=== PATIENT | female | born 1995 | race Caucasian/White ===

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

== ENCOUNTER 2018-03-06 06:11 | Inpatient (IN) | payer MEDICAID ==
[~2018-03-06] VITALS: Ht 160 cm; Wt 88.2 kg
[~2018-03-06 06:11] MED LIST changes: +IBU600 MG PO
[2018-03-09] VITALS (33 sets, daily range): BP systolic 104–145; BP diastolic 55–89; PULSE 60–86; TEMP 98–98.6
--- NOTE | 2018-03-09 07:45 | NUR ---
Patient ambulatory to LDR3 for induction of labor. Plan of care reviewed. EFMs explained and applied. FHR 140bpm and reactive. No ctx per toco or patient reports. VSS. Assessment completed and consents signed. Patient denies leaking of fluid or vaginal bleeding. SVE /-3. IV started in left hand with labs drawn from site. 0745 - LR and Pen G infusing per orders and protocol.
--- NOTE | 2018-03-09 07:45 | NUR ---
Pitocin started at 2mu per orders and protocol.
[2018-03-09 08:07] LABS: BASO % 0.2 % (0.0-2.0); EOS % 0.1 % (0-4.0); GRAN # 6.3 (1.4-6.5); GRAN % 72.2 % (42.2-75.2); HEMATOCRIT 33.2 % (35.0-45.0); HEMOGLOBIN 10.8 g/dl (12.0-15.0); LYMPH # 1.7 (1.2-3.4); LYMPH % 19.1 % (20.0-51.0); MEAN CELL VOLUME 80 fl (80.0-95.0); MEAN CORPUSCULAR HEMOGLOBIN 26 pg (26.0-32.0); MEAN CORPUSCULAR HGB CONC 33 g/dl (33.0-37.0); MEAN PLATELET VOLUME 9.9 fl (7.4-10.4); MONO # 0.7 (0.1-0.6); MONO % 7.8 % (1.7-9.3); PLATELET COUNT 193 K/mm3 (130-400); RED BLOOD COUNT 4.16 M/mm3 (4.10-5.30); REDCELL DISTRIBUTION WIDTH-CV 14.6 % (11.5-14.5)
--- NOTE | 2018-03-09 08:55 | NUR ---
Dr. Butler to room. Reviews FHR tracing. SVE with AROM. /-2 with clear fluid noted.
--- NOTE | 2018-03-09 10:53 | NUR ---
1045 Patient uncomfortable with contractions, requesting epidural. IVF bolus started and RELOCATION DIRECTOR notified. 1048 Lester, RELOCATION DIRECTOR to room to place epidural. Patient sits upright on the side of the bed. FHR difficult to monitor in this position and intermittently monitors maternal HR as it coorelates with spO2 tracing. 1053 Test dose administered by Lester - see anesthesia record for details. 1058 Patient wedged to right side.
--- NOTE | 2018-03-09 12:20 | NUR ---
1145 - Recurrent late decelerations noted. 1155 - Patient turned to high left side. 1215 - Patient c/o feeling increased pressure. SVE - anterior lip/100/+1. Dr. Butler notified. 1218 FHR down to 80 bpm over 3 minutes. Pitocin turned off.
--- NOTE | 2018-03-09 13:11 | NUR ---
1254 Dr. Butler at bedside. SVE - complete. Ozuna out and patient prepped for delivery. 1258 Patient begins to push with contractions. 1311 Spontaneous vaginal delivery of viable male by Dr. Butler. Cord clamped and cut and infant to the care of the nursery RN. 1319 Spontaneous delivery of placenta by Dr. Butler. Pitocin infusing at 333ml/hr per orders and protocol. Fundus firm, lochia WNL.
[2018-03-10 01:00] VITALS: BP 128/70; PULSE 80; TEMP 98.2
[2018-03-10 05:00] VITALS: BP 132/68; PULSE 62; TEMP 98.1
[2018-03-10 09:25] VITALS: BP 131/65; PULSE 64; TEMP 98.1
[2018-03-10] MEDS ORDERED: IBU600 MG PO (09:31)
[2018-03-10] MEDS ORDERED: PERCOCET 325 MG1 TA2 PO (09:31)
[2018-03-10 12:30] VITALS: BP 144/67; PULSE 60; TEMP 97.4
[2018-03-10 16:00] VITALS: BP 135/80; PULSE 62; TEMP 97.8
[2018-03-10 21:35] VITALS: BP 129/61; PULSE 65; TEMP 98.5
[2018-03-11 09:00] VITALS: BP 129/75; PULSE 64; TEMP 97.8
--- NOTE | 2018-03-11 09:31 | NUR ---
Initial visit; Mom thanked Flavorer for offering congratulations and God's blessings for the of their son. Flavorer thanked them for choosing [facility].
== END 2018-03-11 10:55 | disposition home or self-care (01) | DRG 807 ==
LOC: LDR 06:11 → OB 03-09 07:05 → LDR 03-09 07:57 → OB 03-09 15:45
PROVIDERS: ADMIT Obstetrics & Gynecology
PROC: 10E0XZZ Delivery of Products of Conception, External Approach (ICD-10-PCS; principal; 2018-03-09)
PROC: 10907ZC Drainage of Amniotic Fluid, Therapeutic from Products of Conception, Via Natural or Artificial Opening (ICD-10-PCS; 2018-03-09)
PROC: 3E033VJ Introduction of Other Hormone into Peripheral Vein, Percutaneous Approach (ICD-10-PCS; 2018-03-09)
PROC: 0HQ9XZZ Repair Perineum Skin, External Approach (ICD-10-PCS; 2018-03-09)
DX: O34.211 Maternal care for low transverse scar from previous cesarean delivery (principal); Z37.0 Single live birth; Z3A.40 40 weeks gestation of pregnancy; O70.0 First degree perineal laceration during delivery; O99.824 Streptococcus B carrier state complicating childbirth; Z28.21 Immunization not carried out because of patient refusal
CPT/HCPCS: J2540; J2590; J2795; J7120

== ENCOUNTER 2021-01-25 19:19 | Outpatient (CLI) | payer MEDICAID ==
[~2021-01-25] VITALS: Ht 167.6 cm; Wt 88.6 kg
--- NOTE | 2021-01-25 19:28 | NUR ---
PT PRESENTS TO UNIT AND SHOWN TO ROOM LDR 4 BY THIS RN. PT INSTRUCTED TO PUT ON GOWN AND PLAN OF CARE DISCUSSED. PT VERBALIZED AN UNDERSTANDING. PT IS , GBS-, X2. PT PRESENTS COMPLAINING OF CONTRACTIONS q2-5 FOR LAST 2 HR. PT DENIES SROM, VAGINAL BLEEDING, OR DECREASED MOVEMENT.
--- NOTE | 2021-01-25 19:34 | NUR ---
EFM AND TOCO APPLIED
[2021-01-25 20:00] VITALS: BP 136/80; PULSE 92; TEMP 98.6
--- NOTE | 2021-01-25 20:00 | NUR ---
X1 ONE CONTRACTION DETECTED BY MONITOR AND REPORTED BY PT. PT TALKING THROUGH CONTRACTION AND CONTRACTION PALPATES MILD
[2021-01-25 21:00] VITALS: BP 129/65; PULSE 90
--- NOTE | 2021-01-25 21:20 | NUR ---
DISCHARGE TEACHING REVIEWED AND PT VERBALIZED AN UNDERSTANDING. PT GIVEN TEACHING
--- NOTE | 2021-01-25 21:30 | NUR ---
PT AMBULATED OFF FLOOR IN STABLE, UNDELIVERED CONDITION AT THIS TIME
== END 2021-01-25 21:30 | disposition home or self-care (01) ==
LOC: LDRO 19:19 → LDR 19:22 → LDRO 21:30
DX: O62.9 Abnormality of forces of labor, unspecified (principal); Z3A.37 37 weeks gestation of pregnancy
CPT/HCPCS: OP

== ENCOUNTER 2021-02-10 07:36 | Inpatient (IN) | payer MEDICAID ==
[~2021-02-10] VITALS: Ht 167.6 cm; Wt 89.5 kg
[2021-02-10] VITALS (41 sets, daily range): BP systolic 74–150; BP diastolic 30–95; PULSE 63–118; TEMP 97–98.8
--- NOTE | 2021-02-10 08:00 | NUR ---
0745- Pt arrives on unit with complaints of SROM at 4:40 this morning. Pt unsure of color of fluid. Pt into bathroom, changes into gown. 0750- Pt into bed, EFM and TOCO on and tracing. VSS. Pt states she feels contractions but not regular or strong.
--- NOTE | 2021-02-10 08:30 | NUR ---
0813- Amniotrace positive. SVE 05/10/-3. minimal fluid noted with exam.
--- NOTE | 2021-02-10 09:00 | NUR ---
0835- [facility] and TOCO off, PT up for bathroom. Gush of yellow fluid noted when Pt stands at side of bed, will continue to monitor.
--- NOTE | 2021-02-10 09:40 | NUR ---
0940-Dr. Reynoso to unit, evaluates strip in to see patient. SVE 3-06/10/3. Forebag ruptured by MD. 1003-Pit started per MD order.
[2021-02-10 10:37] LABS: BASO % 0.3 % (0.0-2.0); EOS # 0.1 K/mm3 (0.0-0.7); EOS % 0.4 % (0.0-4.0); GRAN # 9.9 K/mm3 (1.4-6.5); HEMOGLOBIN 11.7 g/dl (12.5-16.0); LYMPH % 15.2 % (20.0-51.0); MEAN CELL VOLUME 82 fl (80.0-100.0); MEAN CORPUSCULAR HEMOGLOBIN 28 pg (27-31); MEAN CORPUSCULAR HGB CONC 34 g/dl (33.0-37.0); MEAN PLATELET VOLUME 9.7 fl (7.4-10.4); MONO # 1.1 K/mm3 (0.1-0.6); MONO % 8.3 % (1.7-9.3); PLATELET COUNT 241 K/mm3 (130-400); RED BLOOD COUNT 4.25 M/mm3 (4.10-5.30)
[2021-02-10 10:40] LABS: HEMATOCRIT 34.9 % (37.0-47.0)
--- NOTE | 2021-02-10 10:58 | NUR ---
Patient off to bathroom. Returns to bed WR. 1130-Patient requests epidural. MOSES Batista notified. 1140-Patient sitting upright on bedside for epidural placement. 1149-SS administered by Rosalba Hightower CRNA. Patient tolerated procedure well. Repositioned WR difficulty tracing FHR back WL.
[2021-02-10 11:38] LABS: TRICYCLIC ANTIDEPRESS URINE NEGATIVE
--- NOTE | 2021-02-10 11:50 | NUR ---
1603-0522 Difficulty tracing FHR following repositioning in bed to WR w/ PB after epidural placement. RN at bedside readjusting EFM.
--- NOTE | 2021-02-10 12:35 | NUR ---
1235-See physician notification. 1250-FSE placed by this RN. Dr. Reynoso updated see MD notification. 1321-Dr. Reynoso in route to unit. See MD notification.
--- NOTE | 2021-02-10 13:35 | NUR ---
1335-Dr. Reynoso on unit reviews strip. SVE by . MD remains on unit 1400-Dr. Reynoso checks patient in knee chest attempts to have patient push with contraction to see if cervix moves. Cervix still there per MD. Patient remains knee chest with oxygen on via oxymask. 1428-FHR decel. MD to room. SVE by 9cm. FHR reamins down to 55bpm. calls for c/s. Patient taken in knee chest on bed to OR at 1431.
--- NOTE | 2021-02-10 15:55 | NUR ---
Rests in bed, alert. Holds baby lovingly. Denies any discomfort at this time.
--- NOTE | 2021-02-10 16:00 | NUR ---
Rests in bed, alert. Breastfeeds baby. To room 211 via bed with this nurse and father of the baby. Nibp on, fundus checked, firm with scant amount of red color drainage noted. Call light given.
[2021-02-10 17:21] LABS: HEMATOCRIT 26.7 % (37.0-47.0); HEMOGLOBIN 8.6 g/dl (12.5-16.0)
[2021-02-11 01:30] VITALS: BP 125/78; PULSE 94
--- NOTE | 2021-02-11 01:30 | NUR ---
Patient calls out and c/o chest pain and SOB. She is taking short, quick breaths; she was encouraged to take slow, deep breaths. VS obtained and stable. O2 sat at 100%. Patient asked to describe the pain and she points to her right shoulder. Warm blanket offered and applied to right shoulder, patient's breathing calmed, and referred gas pain explained. Patient expresses understanding and reassurance.
[2021-02-11 03:00] VITALS: BP 121/59; PULSE 81; TEMP 97.8
[2021-02-11 07:48] LABS: BASO % 0.2 % (0.0-2.0); EOS % 0.2 % (0.0-4.0); GRAN # 10.1 K/mm3 (1.4-6.5); GRAN % 76.5 % (42.2-75.2); LYMPH # 1.6 K/mm3 (1.2-3.4); LYMPH % 12.1 % (20.0-51.0); MEAN CELL VOLUME 86 fl (80.0-100.0); MEAN CORPUSCULAR HGB CONC 32 g/dl (33.0-37.0); MEAN PLATELET VOLUME 9.9 fl (7.4-10.4); MONO # 1.4 K/mm3 (0.1-0.6); MONO % 10.3 % (1.7-9.3); PLATELET COUNT 200 K/mm3 (130-400); RED BLOOD COUNT 2.84 M/mm3 (4.10-5.30); REDCELL DISTRIBUTION WIDTH-CV 13.2 % (11.5-14.5)
[2021-02-11 07:50] LABS: HEMATOCRIT 24.5 % (37.0-47.0); HEMOGLOBIN 7.9 g/dl (12.5-16.0); MEAN CORPUSCULAR HEMOGLOBIN 28 pg (27-31)
[2021-02-11 08:00] VITALS: BP 123/65; PULSE 69; TEMP 98
[2021-02-11 12:39] VITALS: BP 109/47; PULSE 66; TEMP 97.8
[2021-02-11 16:55] VITALS: BP 115/66; PULSE 82; TEMP 97.9
[2021-02-11] MEDS ORDERED: MOTRIN 800800 MG/TAB PO (17:48)
[2021-02-11] MEDS ORDERED: PERCOCET 325 MG1 TA2 PO (17:48)
[2021-02-11 20:00] VITALS: BP 125/64; PULSE 79; TEMP 99.2
[2021-02-12 07:00] VITALS: BP 112/66; PULSE 71; TEMP 98.6
== END 2021-02-12 15:15 | disposition home or self-care (01) | DRG 788 ==
LOC: LDRO 07:36 → OB 08:33 → LDR 08:33 → OB 18:12
PROVIDERS: Student in an Organized Health Care Education/Training Program; ADMIT Obstetrics & Gynecology
PROC: 10D00Z1 Extraction of Products of Conception, Low, Open Approach (ICD-10-PCS; principal; 2021-02-10)
DX: O99.214 Obesity complicating childbirth (principal); O76 Abnormality in fetal heart rate and rhythm complicating labor and delivery; O34.211 Maternal care for low transverse scar from previous cesarean delivery; O64.0XX0 Obstructed labor due to incomplete rotation of fetal head, not applicable or unspecified; O77.0 Labor and delivery complicated by meconium in amniotic fluid; O69.1XX0 Labor and delivery complicated by cord around neck, with compression, not applicable or unspecified; Z37.0 Single live birth; Z3A.39 39 weeks gestation of pregnancy
CPT/HCPCS: J0171; J0690; J1885; J2400; J2405; J2590; J2704; J2795; J7120